=== PATIENT | male | born 1985 | race Caucasian/White ===

== ENCOUNTER 2021-07-21 21:22 | Emergency (ER) | payer SELFPAY ==
[2021-07-21 21:24] VITALS: BP 130/87; PULSE 99; RESP 18; TEMP 36.5; O2SAT 97; BMI 50.8
[2021-07-21] MEDS: lidocaine 1% INJ 20 mL INTRADERMA (22:35)
[2021-07-21] MEDS: tetanus-dipt-pertussis 0.5 mL SDV IM (22:35)
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
== END 2021-07-21 23:12 | disposition home or self-care (01) ==
PROVIDERS: Emergency Provider Nurse Practitioner Family
DX: S01.511A Laceration without foreign body of lip, initial encounter (principal); S02.5XXA Fracture of tooth (traumatic), initial encounter for closed fracture; V17.0XXA Pedal cycle driver injured in collision with fixed or stationary object in nontraffic accident, initial encounter; Y92.830 Public park as the place of occurrence of the external cause; Z23 Encounter for immunization
CPT/HCPCS: 12011; 90471; 90715; 99282

== ENCOUNTER 2025-01-21 17:15 | Inpatient (IN) | payer OTHER, SELFPAY ==
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
[2025-01-21 17:28] VITALS: BP 143/93; PULSE 101; RESP 17; TEMP 36.7; O2SAT 97
[2025-01-21 18:02] LABS: Basophils # 0.1 10^3/uL (0.0-0.1); Basophils % 1.4 %; Eosinophils # 0.1 10^3/uL (0.0-0.8); Eosinophils % 1.2 %; Lymphocytes % 35.7 %; Mean Corpuscular HGB Conc 34.4 g/dL (30-55); Mean Corpuscular Hemoglobin 30.1 pg (27-33); Mean Corpuscular Volume 87.6 fl (82-101); Mean Platelet Volume 9.2 fL (7.4-10.4); Monocytes # 0.4 10^3/uL (0.2-0.9); Monocytes % 6.5 %; Neutrophils # 3.14 10^3/uL (1.8-7.7); Nucleated Red Blood Cells % 0 %; Platelet Count 255 10^3/cmm (157-399); Red Blood Count 5.48 10^6/uL (3.85-5.65); Red Cell Distribution Width 12.9 % (12.1-15.1); White Blood Count 5.71 10^3/uL (3.29-11.43)
[2025-01-21 18:18] LABS: Alanine Aminotransferase 56 U/L (0-41); Albumin Level 4.6 g/dL (3.5-5.2); Alcohol Level 229 mg/dL (0-10); Alkaline Phosphatase 134 U/L (40-130); Anion Gap 22.8 (5-19); Aspartate Amino Transferase 40 U/L (0-40); Blood Urea Nitrogen 13 mg/dL (6-20); Carbon Dioxide 21 mmol/L (22-29); Chloride 102 mmol/L (98-107); Creatinine Clr Calc Pharmacy 120.1508; Globulin 2.8 g/dL (1.3-4.6); Glucose 107 mg/dL (65-115); Osmolality Calculated 295 mOsm/kg (285-295); Potassium 3.8 mmol/L (3.5-5.1); Sodium 142 mmol/L (136-145); Total Bilirubin 0.3 mg/dL (0.15-1.2); Total Protein 7.4 g/dL (6.6-8.7)
[2025-01-21 18:27] LABS: Acetaminophen < 5.0 ug/mL (10-30); Salicylate < 0.3 mg/dL (3-10)
[2025-01-21 20:00] VITALS: BP 144/90; PULSE 73; RESP 18; TEMP 37.3; O2SAT 96
[2025-01-21 21:33] VITALS: BP 138/72; PULSE 78; RESP 16; O2SAT 98
[2025-01-21] MEDS: trazodone 50 mg Tablet PO (22:07)
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
[2025-01-22] VITALS: RESP 16
[2025-01-22] MEDS: hyDROXYzine 25 mg Capsule 50 MG PO (02:49)
[2025-01-22 04:00] VITALS: BP 129/80; PULSE 100; RESP 18; TEMP 37.1; O2SAT 95
[2025-01-22 08:00] VITALS: BP 134/92; PULSE 80; RESP 18; TEMP 36.8; O2SAT 98
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
[2025-01-22 12:00] VITALS: BP 147/82; PULSE 96; RESP 18; TEMP 36.8; O2SAT 99
[2025-01-22 16:00] VITALS: BP 138/87; PULSE 82; RESP 18; TEMP 36.6; O2SAT 98
[2025-01-22 20:00] VITALS: BP 137/91; PULSE 72; RESP 16; TEMP 36.6; O2SAT 98
[2025-01-23] VITALS: BP 125/90; PULSE 96; RESP 18; TEMP 36.6; O2SAT 97
[2025-01-23 01:16] LABS: Amphetamines Screen Urine Negative (Negative); Barbiturates Screen Urine Negative (Negative); Benzodiazepines Screen Urine Negative (Negative); Cocaine Screen Urine Negative (Negative); Opiate Screen Urine Negative (Negative); PCP Screen Urine Negative (Negative); THC Screen Urine Positive (Negative)
[2025-01-23 03:56] VITALS: BP 130/93; PULSE 94; RESP 18; TEMP 36.7; O2SAT 97
[2025-01-23 06:00] VITALS: BMI 23.2
[2025-01-23 08:00] VITALS: BP 128/81; PULSE 92; RESP 18; TEMP 36.9; O2SAT 97
[2025-01-23] MEDS: thiamine 100 mg Tablet PO (08:42)
[2025-01-23] MEDS: fluoxetine 20 mg Capsule PO (08:42)
[2025-01-23] MEDS: folic acid 1 mg Tablet PO (08:42)
[2025-01-23] MEDS: multivitamin therapeutic Tablet 1 TAB PO (08:42)
[2025-01-23 12:00] VITALS: BP 128/90; PULSE 63; RESP 18; TEMP 36.8; O2SAT 98
[2025-01-23 16:00] VITALS: BP 126/87; PULSE 84; RESP 18; TEMP 36.8; O2SAT 97
--- NOTE | 2025-01-23 16:50 | P.NPUPN_ITS ---
Subjective NPU 2 Subjective: 39-year-old male with no previous histor y of inpatient hospitalization admitted with depression and some suicidal ideation. Patient remained isolative on the milieu. He had endorsed a history of compulsive bike riding for several years. He had also reported that he often struggled with managing his anxiety and worry. He reports that he has not been feeling depressed. He had reported that he has a family history of members with ADHD and reported that he has extreme difficulties since childhood with being a picky eater, difficulties with changes in in routine and structure along with excess sensitivity to loud noises. He reports that he had struggled historically with understanding cloak we will expressions and often misjudged others facial expressions. He had reported that he had a history of repetitive rocking and walking on his tippy toes stating that he still engages in this behavior from time to time. He had reported that he does engage in some specific rituals and states that he needs to return on his bike rides from a certain spot otherwise he will have significant anxiety. Mental Status Exam 2 MSE Comments: This is an underweight white male in hospital scrubs with limited grooming and eye contact. No abnormal movements except for psychomotor agitation. Cooperative with exam in mild distress. Speech was increased rate and volume and somewhat pressured. Mood described as okay. His affect was restricted in range. Thought process was linear and organized. Thought content: Patient denied suicidal or homicidal ideation, there were no delusions noted or reported, but he did express some reports of circumstances surrounding his admission that seem they could be delusional in nature, he denied current auditory or visual hallucinations but reported some automotive activity outside of his house that led him to have some concerns about safety. Attention and concentration were limited and memory was mostly reliable but no more formally tested. He is alert and oriented times person and place. Insight, judgment and impulse control were limited versus impaired. 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 He reports that that was followed by significant anxiety and OCD like symptoms that have caused problems at different times in his life. He reported a recent cluster of psychosocial challenges that seem to push him over the edge and culminated in him having a strange interaction with the police that led to charges. 1. Continue Prozac 20 mg p.o. daily. RAADS-R given, comic book writer supports that patient appears to have struggles that may place him in the autistic specturm. 2. Continue every 15 minute checks for safety. 3. Encourage individual, group and milieu therapies. 4. Get collateral information. 5. Evaluate against the backdrop of the 96-hour hold. 6. Encourage sober living treatment after discharge to the highest level of care to which she is willing to commit. Obtain a UDS. PDMP PDMP Reviewed: Not Reviewed Involuntary Hold Information 2 Hold Status: Date/Time Hold Expires: voluntary Attestations NPU 2 Medical Necessity Statement*: Inpatient hospitalization is medically necessary and the clinically appropriate intervention at this time. We will monitor/initiate medications and make changes as indicated. The patient's likely length of stay 1-2 days. Coding Level of Care Code Acute Code for [facility] Diagnoses OCD (obsessive compulsive disorder) F42.9 Depression F32.A Generalized anxiety disorder F41.1 Adjustment disorder with mixed disturbance of emotions and conduct F43.25
[2025-01-23 20:00] VITALS: BP 149/87; PULSE 71; RESP 18; TEMP 36.8; O2SAT 96
[2025-01-23] MEDS: trazodone 50 mg Tablet PO (20:26)
[2025-01-23] MEDS: hyDROXYzine 25 mg Capsule 50 MG PO (20:26)
--- NOTE | 2025-01-24 00:33 | PC.NURSE ---
vs not completed per charge nurse resp 16
[2025-01-24 04:00] VITALS: BP 136/88; PULSE 79; RESP 17; TEMP 36.4; O2SAT 96
[2025-01-24] MEDS: fluoxetine 20 mg Capsule PO (08:49)
[2025-01-24] MEDS: thiamine 100 mg Tablet PO (08:49)
[2025-01-24] MEDS: folic acid 1 mg Tablet PO (08:49)
[2025-01-24] MEDS: multivitamin therapeutic Tablet 1 TAB PO (08:49)
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
[2025-01-24 14:07] VITALS: BP 136/88; PULSE 79; RESP 17; TEMP 36.4; O2SAT 96
[2025-01-24 14:38] VITALS: BP 136/88; PULSE 79; RESP 17; TEMP 36.1; O2SAT 96
== END 2025-01-24 14:40 | disposition home or self-care (01) | DRG 882 ==
LOC: ER 18:45 → NP 18:49
PROVIDERS: Admitting Provider Psychiatry & Neurology Psychiatry; Emergency Provider Emergency Medicine; Visit Provider Psychiatry & Neurology Psychiatry
DX: F42.9 Obsessive-compulsive disorder, unspecified (principal); F84.0 Autistic disorder; F32.A Depression, unspecified; F41.1 Generalized anxiety disorder; F43.25 Adjustment disorder with mixed disturbance of emotions and conduct
CPT/HCPCS: 36415; 80053; 80306; 80307; 85025; 97150; 97165; 99285; J9999

== ENCOUNTER 2025-03-03 15:26 | Emergency (ER) | payer OTHER, SELFPAY ==
[2025-03-03 15:47] VITALS: BP 140/89; PULSE 111; RESP 18; TEMP 36.7; O2SAT 95
--- NOTE | 2025-03-03 16:46 | ED_ITS ---
HPI - General Adult General: Chief complaint: General Medical Stated complaint: Medication problems History of Present Illness: Patient is a 39-year-old gentleman with history of depression, discharged here on 01/24, on fluoxetine, reports to ED with fluoxetine side effects. He has not h ad his behavioral health follow-up, or knows when it is. He does keep taking his fluoxetine despite having nausea, vomiting, and dizziness. He is taking 10 mg a day. He did not stop it because he wants a doctor to tell him to stop it. No other symptoms. Denies wanting to be admitted for medication adjustments. Denies suicide ideations or plan. Denies substance abuse disorder/drinking/drugs Associated symptoms: Reports nausea and vomiting; Deny chest pain, dyspnea, headache(s), rash or palpitations Related Data Previous Rx's ?Medication ?Instructions ?Recorded fluoxetine 20 mg capsule 20 mg PO DAILY 30 days #30 c aps 01/24/25 ondansetron 4 mg disintegrating 4 mg PO Q8H PRN nausea and 03/03/25 tablet vomiting 4 days #14 tabs Allergies Allergy/AdvReac Type Severity Reaction Status Date / Time No Known Allergies Allergy Verified 01/31/25 15:36 Review of Systems Const: Denies: fever(s) or chills Eyes: Denies: change in vision or blurry vision Card: Denies: chest pain or palpitations Resp: Denies: dyspnea or productive cough GI: Reports: nausea and vomiting; Denies: abdominal pain : Denies: flank pain or difficulty urinating Musc: Denies: neck pain or back pain Skin/Breast: Denies: rash or pruritus Neuro: Reports: dizziness; Denies: headache(s) or numbness in extremities Psych: Reports: anxiety, depression, mood swings and panic attacks [facility] ED PFSH: Medical History (Updated 03/03/25 @ 16:49 by RON Tsai) Psychiatric care Physical Exam Const: COMMON NORMALS: no acute distress, average body habitus and patient oriented x3 GENERAL APPEARANCE: cooperative HENMT: COMMON NORMALS: normocephalic and atraumatic HEAD & SCALP: normocephalic and atraumatic Eye: COMMON NORMALS: Equal, round and reactive pupils present and EOMs intact bilaterally PUPIL: Yes Equal, round and reactive pupils present Neck/C-Spine: COMMON NORMALS: full ROM and no lymphadenopathy Lymph: LYMPHATIC: no lymphadenopathy noted Chest: COMMONS NORMALS: normal inspection of the chest and normal palpation of entire chest wall Resp: COMMON NORMALS: normal respiratory effort, No retractions and clear to auscultation bilaterally AUSCULTATION: clear to auscultation bilaterally Cardio: COMMON NORMALS: regular rate and regular rhythm RATE: regular rate RHYTHM: regular rhythm GI: COMMON NORMALS: Normal to inspection, nondistended, normoactive bowel sounds present : COMMON NORMALS: Yes no CVA tenderness BLADDER/KIDNEY EXAM: Yes no CVA tenderness Back/Pelvis: COMMON NORMALS: no CVA tenderness Extremity: COMMON NORMALS: normal to inspection and full ROM Neuro: COMMON NORMALS: patient oriented x3 and CN's II-XII intact bilaterally Psych: COMMON NORMALS: mental status grossly normal and Normal thought process present THOUGHT PROCESS: Normal thought process present Skin: COMMON NORMALS: no rashes or lesions noted and no wounds GENERAL SKIN EXAM: no rashes or lesions noted Course Vital Signs: Vital signs: Vital Signs Temperature 98.1 F 03/03/25 15:47 Pulse Rate 111 H 03/03/25 15:47 Respiratory Rate 18 03/03/25 15:47 Blood Pressure 140/89 03/03/25 15:47 Pulse Oximetry 95 03/03/25 15:47 Oxygen Delivery Me thod Room Air 03/03/25 15:47 MDM - General Adult Medical Decision Making Patient is a 39-year-old gentleman with complaints of nausea, vomiting, dizziness on escitalopram 10 mg, placed on patient during suicide ideations admission, discharged on 01/24. He has continued to take the medications since he would like a doctor to tell him to stop. He did not follow-up with behavioral health. I have discussed with patient the limits of the ED, and explained that he needs to follow-up with behavioral health. He is asked to be placed on Adderall, for which I noted we do not do that in an emergency room situation. Patient denies any suicide ideations, and declines voluntary admission for medication adjustment. He will follow-up outpatient, and return to ED for further issues. I have explained to him to cut the citalopram in half tomorrow, then stop the medication. Marnie has been sent to the pharmacy for ongoing nausea or vomiting Medical Records I reviewed the patient's medical records. No radiology studies performed this visit Discharge Plan Discharge Patient Disposition: Home Clinical Impression: Medication reaction Qualifiers: Encounter type: initial encounter Qualified Code(s): T50.905A - Adverse effect of unspecified drugs, medicaments and biological substances, initial encounter Condition: Stable Prescriptions: New ondansetron 4 mg tablet,disintegrating 4 mg PO Q8H PRN (Reason: nausea and vomiting) 4 Days Qty: 14 0RF No Action fluoxetine 20 mg Capsule 20 mg PO DAILY 30 Days Qty: 30 2RF Discharge Orders: Discharge ED (Routine); Ordered 03/03/25 Ordered By: France Contreras Discharge Diet: Usual diet Discharge Activity: Resume usual activity Patient Instructions: Anxiety (ED), Patient Portal & Shonda Instructions Activity Restrictions/Additional Instructions: Call behavioral health for your follow-up appointment. Keep your follow-up appointment. Stop your Lexapro/escitalopram. You can take one half of escitalopram in a.m., then stop using medication due to side effects. This is not an allergic reaction, however do not recommend continuing with your side effects. Zofran/ondansetron has been sent to the pharmacy for your side effects of nausea and vomiting. Increase fluid intake. If you have further issues with nausea, and vomiting, changed to a clear liquid diet until improved. Return to ED for worsening symptoms. Stand Alone Forms: Work/School Release Print Language: Armenian Coding Level of Care Code ED Bridge Rigger for Clarence Chamorro
[2025-03-03 16:53] VITALS: PULSE 106; O2SAT 99
--- NOTE | 2025-03-03 16:59 | ECG_ITS ---
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 Measurements Intervals [place] Rate: 104 P: 56 [place]: 136 QRS: 72 QRSD: 89 T: 40 QT: 339 QTc: 447 Interpretive Statements SINUS TACHYCARDIA ABNORMAL RHYTHM ECG No previous ECG available for comparison Electronically Signed On 03-04-2025 15:20:37 CDT by Hallie Cedillo M.D. [id number]
--- NOTE | 2025-03-03 17:06 | W.ED.GENADLT ---
HPI - General Adult General: Chief complaint: General Medical Stated complaint: Medication problems History of Present Illness: Patient is 39-year-old male that was discharged from psychiatric facility here on 01/24, on escitalopram, did not follow-up with behavioral health, that presents with symptoms of escitalopram of nausea, vomiting, and dizziness. He confirms he is continuing to take his 10 mg by mouth daily, however he is scared to stop the medication due to fear of side effects without a doctor's approval. Patient was advised to cut the medication in half and take tomorrow, then stop taking. He was advised to follow-up with primary care. Case management order was placed. Associated symptoms: Reports chest pain, nausea, palpitations and vomiting; Deny headache(s) Related Data Previous Rx's ?Medication ?Instructions ?Recorded fluoxetine 20 mg capsule 20 mg PO DAILY 30 days #30 caps 01/24/25 ondansetron 4 mg disintegrating 4 mg PO Q8H PRN nausea and 03/03/25 tablet vomiting 4 days #14 tabs Allergies Allergy/AdvReac Type Severity Reaction Status Date / Time No Known Allergies Allergy Verified 01/31/25 15:36 Review of Systems Const: Denies: fever(s) or chills Eyes: Denies: change in vision or blurry vision ENMT: Denies: throat pain or nasal congestion Card: Reports: chest pain and palpitations GI: Reports: nausea and vomiting; Denies: abdominal pain : Denies: flank pain or difficulty urinating Musc: Denies: neck pain or back pain Neuro: Reports: dizziness; Denies: headache(s) [facility] ED PFSH: Medical History (Updated 03/03/25 @ 16:49 by RON Tsai) Psychiatric care Physical Exam Const: COMMON NORMALS: patient oriented x3 HENMT: COMMON NORMALS: normocephalic and atraumatic HEAD & SCALP: normocephalic and atraumatic Neck/C-Spine: COMMON NORMALS: full ROM and no lymphadenopathy Lymph: LYMPHATIC: no lymphadenopathy noted Resp: COMMON NORMALS: normal respiratory effort, No retractions and clear to auscultation bilaterally EFFORT & INSPECTION: Yes able to speak in complete sentences, Yes symmetric chest movement and No respiratory distress AUSCULTATION: clear to auscultation bilaterally Cardio: COMMON NORMALS: regular rate and regular rhythm RATE: regular rate RHYTHM: regular rhythm GI: COMMON NORMALS: Normal to inspection, nondistended, normoactive bowel sounds present, Soft to palpation and non-tender PALPATION: Yes Soft to palpation : COMMON NORMALS: Yes no CVA tenderness BLADDER/KIDNEY EXAM: Yes no CVA tenderness Back/Pelvis: COMMON NORMALS: no CVA tenderness Extremity: COMMON NORMALS: normal to inspection, full ROM and capillary refill normal Neuro: COMMON NORMALS: patient oriented x3 and CN's II-XII intact bilaterally Psych: COMMON NORMALS: mental status grossly normal and speech normal APPEARANCE: Yes disheveled ATTITUDE: Yes Withdrawn affect present and Yes Guarded attititude/behavior present SPEECH: Yes normal speech Skin: COMMON NORMALS: no rashes or lesions noted, no wounds and turgor normal GENERAL SKIN EXAM: no rashes or lesions noted and turgor normal Course Vital Signs: Vital signs: Vital Signs Temperature 98.1 F 03/03/25 15:47 Pulse Rate 106 H 03/03/25 16:53 Respiratory Rate 18 03/03/25 15:47 Blood Pressure 140/89 03/03/25 15:47 Pulse Oximetry 99 03/03/25 16:53 Oxygen Delivery Me thod Room Air 03/03/25 15:47 MDM - General Adult Medical Decision Making Patient is a 39-year-old gentleman that reports to ED with increased anxiety, and chest pain when he was being discharged after declining on escitalopram, from [facility] on 01/24, and did not have follow-up with behavioral health provider. He has had increased side effects with nausea, vomiting, dizziness. He is anxious at this time however denies any suicide thoughts or intentions. He would like to be placed on Adderall. I discussed the limits of the Emergency Department, which included placing patient on medication such as this. I have placed the case management order to help assist patient as well. I have also encouraged patient to keep his appointment with behavioral health. He will be given Zyprexa x 1 here, and Zofran was sent to the pharmacy. All of his questions were answered to his satisfaction. No other concerns with his current EKG were noted. No radiology studies performed this visit EKG Data EKG 1: Interpretation: Sinus tachycardia with LVH, QTc 399 Computer generated interpretation: Sinus tachycardia, abnormal rhythm EKG Discharge Plan Discharge Patient Disposition: Home Clinical Impression: Medication reaction Qualifiers: Encounter type: initial encounter Qualified Code(s): T50.905A - Adverse effect of unspecified drugs, medicaments and biological substances, initial encounter Condition: Stable Prescriptions: New ondansetron 4 mg tablet,disintegrating 4 mg PO Q8H PRN (Reason: nausea and vomiting) 4 Days Qty: 14 0RF No Action fluoxetine 20 mg Capsule 20 mg PO DAILY 30 Days Qty: 30 2RF Discharge Orders: Discharge ED (Routine); Ordered 03/03/25 Ordered By: France Contreras Discharge Diet: Usual diet Discharge Activity: Resume usual activity Patient Instructions: Anxiety (ED), Patient Portal & Shonda Instructions Activity Restrictions/Additional Instructions: Call behavioral health for your follow-up appointment. Keep your follow-up appointment. Stop your Lexapro/escitalopram. You can take one half of escitalopram in a.m., then stop using medication due to side effects. This is not an allergic reaction, however do not recommend continuing with your side effects. Zofran/ondansetron has been sent to the pharmacy for your side effects of nausea and vomiting. Increase fluid intake. If you have further issues with nausea, and vomiting, changed to a clear liquid diet until improved. Return to ED for worsening symptoms. Stand Alone Forms: Work/School Release Print Language: Tamazight Coding Level of Care Code ED Cash Reconciliation Specialist for Clarence Chamorro
--- NOTE | 2025-03-03 17:58 | DCPLANNER ---
messaged [facility] for er f/u
== END 2025-03-03 17:20 | disposition home or self-care (01) ==
PROVIDERS: Emergency Provider Physician Assistant
DX: R11.2 Nausea with vomiting, unspecified (principal); R42 Dizziness and giddiness; T43.225A Adverse effect of selective serotonin reuptake inhibitors, initial encounter; Z79.899 Other long term (current) drug therapy
CPT/HCPCS: 93005; 99283; J9999